=== PATIENT | male | born 2000 | race Hispanic/Latino ===

== ENCOUNTER 2021-05-17 00:15 | Emergency (ER) | payer OTHER ==
[2021-05-17] MEDS ORDERED: Lidocaine 1% (PF) 30 ML VIAL ONE (00:23)
[2021-05-17] MEDS ORDERED: Boostrix 0.5 ML (Tdap) VIAL ONE (00:23)
[2021-05-17] MEDS ORDERED: Bacitracin 1 PK ONE (00:24)
== END 2021-05-17 01:15 | disposition home or self-care (01) ==
LOC: NAV ERS 00:15
DX: S61.511A Laceration without foreign body of right wrist, initial encounter (principal); Z23 Encounter for immunization; W19.XXXA Unspecified fall, initial encounter
CPT/HCPCS: 12002; 90471; 90715; 99001; J2001

== ENCOUNTER 2021-05-24 13:49 | Emergency (ER) | payer SELFPAY | END 2021-05-24 14:20 | disposition home or self-care (01) | LOC: NAV ERS 13:49 | DX: S61.511D Laceration without foreign body of right wrist, subsequent encounter (principal); X58.XXXD Exposure to other specified factors, subsequent encounter ==